=== PATIENT | male | born 1950 | race Caucasian/White ===

== ENCOUNTER → 2017-02-23 | Outpatient (CLI) | payer OTHER, MEDICARE | LOC: GIMAGING 08:43 | PROVIDERS: ATTEND Family Medicine | DX: M47.22 Other spondylosis with radiculopathy, cervical region (principal); M46.92 Unspecified inflammatory spondylopathy, cervical region; M50.222 Other cervical disc displacement at C5-C6 level | CPT/HCPCS: 72050-PO ==

== ENCOUNTER → 2017-10-20 | Outpatient (CLI) | payer OTHER, MEDICARE | LOC: FIMAGING 15:13 | PROVIDERS: ATTEND Physician Assistant | DX: M50.321 Other cervical disc degeneration at C4-C5 level (principal); M50.322 Other cervical disc degeneration at C5-C6 level; M50.323 Other cervical disc degeneration at C6-C7 level; M12.88 Other specific arthropathies, not elsewhere classified, other specified site; M48.02 Spinal stenosis, cervical region; M99.71 Connective tissue and disc stenosis of intervertebral foramina of cervical region; G95.20 Unspecified cord compression ==